=== PATIENT | female | born 1985 | race Caucasian/White ===

== ENCOUNTER 2016-10-04 23:49 | Emergency (ER) | payer SELFPAY ==
[~2016-10-04] VITALS: Ht 160 cm; Wt 63.5 kg
[~2016-10-04 23:49] MED LIST: CIPR500T2 PO; PYRI200T4 PO; Z.0.NO CURRENT MEDS
[2016-10-05 00:49] VITALS: BP 143/92; PULSE 60; RESP 18; TEMP 98.6; O2SAT 100
== END 2016-10-05 05:35 | disposition left against medical advice (07) ==
LOC: PHED 23:49
DX: R21 Rash and other nonspecific skin eruption (principal)
CPT/HCPCS: 99281